=== PATIENT | female | born 1985 | race Caucasian/White ===

== ENCOUNTER 2017-11-30 12:46 | Observation (INO) | payer OTHER ==
[~2017-11-30] VITALS: Ht 167.6 cm; Wt 66.5 kg
[2017-11-30] MEDS ORDERED: SODIUM CHLORIDE 0.9% 1000ML 1,000 ML IV STA (13:47)
[2017-11-30 14:14] LABS: BASO % 0.8 %; BASO ABS # 0.05 K/uL (0-0.2); EOS % 5.4 %; EOS ABS # 0.35 K/uL (0-0.5); HEMATOCRIT 40.2 % (37-47); HEMOGLOBIN 13.4 g/dL (12.0-16.0); IG# 0.02 K/uL (0.00-0.02); LYMPH ABS # 1.55 K/uL (1.2-3.4); MEAN CELL VOLUME 89.9 fL (80-100); MEAN CORPUSCULAR HGB CONC 33.3 g/dl (32-36); MEAN PLATELET VOLUME 10.3 fL (7.4-10.4); MONO % 5.9 %; MONO ABS # 0.38 K/uL (0.11-0.59); NEUT % 63.6 %; PLATELET COUNT 263 K/uL (130-400); RED CELL DISTRIBUTION WIDTH CV 12.7 % (11.5-14.5); RED CELL DISTRIBUTION WIDTH SD 41.2 fL (36.4-46.3); WHITE BLOOD COUNT 6.45 K/uL (4.8-10.8)
[2017-11-30] MEDS ORDERED: NICOTINE 7 MG/24 HR TDSY TD STA (14:36)
[2017-11-30 14:37] LABS: ALBUMIN 4.4 gm/dl (3.4-5.0); CALCIUM 9.2 mg/dl (8.5-10.1); CREATININE 0.67 mg/dl (0.60-1.20); POTASSIUM 3.6 mmol/L (3.5-5.1)
[2017-11-30 14:40] LABS: TOTAL PROTEIN 8.6 gm/dl (6.4-8.2)
[2017-11-30] MEDS ORDERED: LAMO25TA PO (14:41)
[2017-11-30] MEDS ORDERED: OMEP20TA40 PO (14:41)
[2017-11-30] MEDS ORDERED: VENL75CA PO (14:41)
[2017-11-30] MEDS ORDERED: ONDANSETRON INJ 2 MG/ML 2 ML VIAL IV PRN (15:30)
[2017-11-30] MEDS ORDERED: POLYETHYLENE (MIRALAX) 17 GM PACK PO PRN (15:30)
[2017-11-30] MEDS ORDERED: ALUMINUM/MAGNESIUM/SIMETH (MAALOX MAX) 30 ML UDC PO PRN (15:30)
[2017-11-30] MEDS ORDERED: MAGNESIUM HYDROXIDE SUSP 30 ML UDC PO PRN (15:30)
[2017-11-30] MEDS ORDERED: NITROGLYCERIN 0.4 MG SL PER TAB CHARGE SL PRN (15:30)
--- NOTE | 2017-11-30 15:51 | History and Physical ---
History & Physical Date & Time of Service: Nov 30, 2017 at 15:36 Chief Complaint: Took All Pills Primary Care Physician: Gita Bajwa M.D. History of Present Illness Source: patient, clinic records, hospital records Patient is a 31 y/o female, with PMHx of depression, ?bipolar disorder, and GERD , who presented to the ED today due to overdosing on prescribed Lamictal and Effexor. She denies wanting to hurt herself. She states she has just been feeling very low lately and unable to sleep. She just wanted "to feel happy." She follows routinely w/ a psychiatrist on campus. She is diagnosed w/ depression and is believed to have bipolar but is not formally diagnosed. 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 She is from [place]. +insomnia. ED provider spoke w/ poison control who recommends 24 hour observation then she can be transferred to [facility]. Patient denies any fever, chills, sweats, lightheadedness, dizziness, vision changes, CP , palpitations, edema, SOB, wheezing, cough, abdominal pain, nausea, vomiting, diarrhea, urinary symptoms, melena, numbness/tingling, weakness, muscle/joint pain, anxiety, active bleeding, or new skin discoloration/changes. Past Medical/Surgical History Medical Problems: Depression ?bipolar disorder GERD (gastroesophageal reflux disease) PFS (patellofemoral syndrome) tobacco abuse Family History Patient reports no known family medical history. Social History Smoking Status: Current Every Day Smoker Smokeless Tobacco Use: No Alcohol Use: none Drug Use: none Marital Status: single Allergies Coded Allergies: Amoxicillin (Unverified Allergy, Unknown, RASH, 11/30/17) Home Medications Scheduled Lamotrigine (Lamictal), 25 MG PO QAM Omeprazole ([facility] Omeprazole), 40 MG PO DAILY Venlafaxine Hcl (Effexor Xr), 75 MG PO QAM Physical Exam Vital Signs Date Time Temp Pulse Resp B/P (MAP) Pulse Ox O2 Delivery O2 Flow Rate FiO2 11/30/17 14:29 63 16 114/72 99 Room Air 11/30/17 14:09 100 Room Air 11/30/17 12:59 36.7 79 18 121/69 100 Room Air General Appearance: WD/WN, no apparent distress Head: normocephalic, atraumatic Eyes: normal inspection, PERRL ENT: hearing grossly normal Neck: supple Respiratory/Chest: lungs clear, no respiratory distress, no accessory muscle use Cardiovascular: regular rate, rhythm Abdomen/GI: normal bowel sounds, non tender, soft Back: normal inspection Extremities/Musculoskelatal: no calf tenderness, no pedal edema Neurologic/Psych: alert, oriented x 3, + depressed affect Skin: normal color, warm/dry, no rash Diagnostics Laboratory Results Results Past 24 Hours Test 11/30/17 14:00 11/30/17 14:02 Range/Units White Blood Count 6.45 4.8-10.8 K/uL Red Blood Count 4.47 4.2-5.4 M/uL Hemoglobin 13.4 12.0-16.0 g/dL Hematocrit 40.2 37-47 % Mean Corpuscular Volume 89.9 80-100 fL Mean Corpuscular Hemoglobin 30.0 25-34 pg Mean Corpuscular Hemoglobin Concent 33.3 32-36 g/dl Platelet Count 263 130-400 K/uL Mean Platelet Volume 10.3 7.4-10.4 fL Neutrophils (%) (Auto) 63.6 % Lymphocytes (%) (Auto) 24.0 % Monocytes (%) (Auto) 5.9 % Eosinophils (%) (Auto) 5.4 % Basophils (%) (Auto) 0.8 % Neutrophils # (Auto) 4.10 1.4-6.5 K/uL Lymphocytes # (Auto) 1.55 1.2-3.4 K/uL Monocytes # (Auto) 0.38 0.11-0.59 K/uL Eosinophils # (Auto) 0.35 0-0.5 K/uL Basophils # (Auto) 0.05 0-0.2 K/uL RDW Standard Deviation 41.2 36.4-46.3 fL RDW Coefficient of Variation 12.7 11.5-14.5 % Immature Granulocyte % (Auto) 0.3 % Immature Granulocyte # (Auto) 0.02 0.00-0.02 K/uL Sodium Level 140 136-145 mmol/L Potassium Level 3.6 3.5-5.1 mmol/L Chloride Level 107 98-107 mmol/L Carbon Dioxide Level 27 21-32 mmol/L Anion Gap 6.0 3-11 mmol/L Blood Urea Nitrogen 15 7-18 mg/dl Creatinine 0.67 0.60-1.20 mg/dl Est Creatinine Clear Calc Drug Dose 104.7 ml/min Estimated GFR () 136.7 Estimated GFR (Non- 118.0 BUN/Creatinine Ratio 21.6 10-20 Random Glucose 88 70-99 mg/dl Calcium Level 9.2 8.5-10.1 mg/dl Total Bilirubin 0.4 0.2-1 mg/dl Direct Bilirubin 0.1 0-0.2 mg/dl Aspartate Amino Transf (AST/SGOT) 21 15-37 U/L Alanine Aminotransferase (ALT/SGPT) 30 12-78 U/L Alkaline Phosphatase 54 45-117 U/L Total Creatine Kinase 100 26-192 U/L Total Protein 8.6 6.4-8.2 gm/dl Albumin 4.4 3.4-5.0 gm/dl Lipase 313 73-393 U/L Salicylates Level < 1.7 2.8-20 mg/dl Acetaminophen Level < 2 10-30 ug/ml Ethyl Alcohol mg/dL < 3.0 0-3 mg/dl Urine Color YELLOW Urine Appearance CLEAR CLEAR Urine pH 6.5 4.5-7.5 Urine Specific [place] 1.011 1.000-1.030 Urine Protein NEG NEG Urine Glucose (UA) NEG NEG Urine Ketones NEG NEG Urine Occult Blood NEG NEG Urine Nitrite NEG NEG Urine Bilirubin NEG NEG Urine Urobilinogen NEG NEG Urine Leukocyte Esterase NEG NEG Urine Test NEG NEG Urine Opiates Screen NEG NEG Urine Methadone, Qualitative NEG NEG Urine Barbiturates NEG NEG Urine Phencyclidine (PCP) Level NEG NEG Ur Amphetamine/Methamphetamine NEG NEG MDMA (Ecstasy) Screen NEG NEG Urine Benzodiazepines Screen NEG NEG Urine Cocaine Metabolite NEG NEG Urine Marijuana (THC) NEG NEG EKG JOSE ANTONIO ROMANO ID:[id number] 30-NOV-2017 13:49:40 [facility] Sinus bradycardia Rightward axis Voltage criteria for left ventricular hypertrophy Abnormal ECG No previous ECGs available 25mm/s 10mm/mV 150Hz 8.0 SP2 12SL 241 CLAIRE: 13 Referred by: Referred Self Unconfirmed Vent. rate 58 BPM TN interval 174 ms QRS duration 94 ms QT/QTc 426/418 ms P-R-T axes 67 94 9 1985 (31 yr) Female Room: Loc:15 Entry Level Drafter:SHANE GARCIA Test ind: Impression Assessment and Plan Patient is a 31 y/o female, with PMHx of depression, ?bipolar disorder, and GERD , who presented to the ED today due to overdosing on prescribed Lamictal and Effexor. Intentional overdose on Effexor and Lamictal, depression and ?bipolar disorder: - Admit to tele for cardiac monitoring - O2 protocol - EGK QAM and PRN for chest pain - IVF @ 125 ml/hr - Hold Lamictal and Effexor for now - Suicidal observation - Check b12, vitamin D, TSH - Consult psychiatry, appreciate recommendations Tobacco abuse: - Smoking cessation counselling - Nicotine patch GERD: Protonix daily DVT prophylaxis: Heparin SQ BID Code status: LEVEL I, FULL Dispo: [employer] student- 24 hour observation then likely transfer to [facility] Level of Care Telemetry Resuscitation Status FULL RESUSCITATION VTE Prophylaxis VTE Risk Assessment Done? Y/N: Yes Risk Level: Low Given or contraindicated: Enoxaparin (Lovenox)SQ, T.E.D. Stockings, SCD's Note Attending Admission Note & Attestation: Pt seen/examined, chart reviewed, care plan d/w JUSTIN Kelly. I agree w/ the myers components of her admission documentation. 31yo female with recently diagnosed bipolar disorder type 2 who presents after apparent suicide attempt by way of ingestion (medications). PMH, PSH, allergies, meds, sochx, famhx, ros - reviewed denies any palpitations, sweats, tremors, chest pain VSS no fever gen - flat affect, NAD heart - RRR, s1, s2 lungs - CTA b/l abd - soft, NT ext - no edema psych - denies suicidal ideation; flat affect A/P: bipolar d/o type 2 with depression apparent suicide attempt by way of ingestion with lamictal/effexor telemetry, EKG in am no signs/symptoms of serotonin excess at this time psych consult 1:1 observation/suicide precautions Jane Rodriguez MD
[2017-11-30 16:45] VITALS: BP 127/80; PULSE 60; TEMP 37.2; O2SAT 99; Ht 167.6 cm; Wt 66.5 kg
[2017-11-30] MEDS: SODIUM CHLORIDE 0.9% 1000ML 1,000 ML IV SCH (16:54)
[2017-11-30 19:38] VITALS: BP 116/76; PULSE 67; TEMP 36.6; O2SAT 99
[2017-11-30] MEDS: HEPARIN SOD 5000 UNIT/0.5 ML CARP SQ SCH (19:53)
[2017-11-30 20:00] VITALS: O2SAT 96
--- NOTE | 2017-11-30 20:11 | EMERGENCY ROOM VISIT NOTE ---
History Report prepared by Shalini: Ole Savage Under the Supervision of: Dr. Anup Meraz M.D. First contact with patient: 13:25 Chief Complaint: OVERDOSE (INTENTIONAL) Stated Complaint: TOOK ALL PILLS History of Present Illness The patient is a 31 year old female who presents to the Emergency Room with an intentional drug overdose that occurred prior to arrival. Per the patient and her friend, she took about 450 mg of Effexor XR and about 200 mg of Lamictal. She states that she does not entirely know why she did this, but just wanted to feel happy. She denies any suicidal ideation. She currently feels tired. She has been having mood swings that have worsened recently. 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 She has also been having insomnia for the past year. She tried Trazodone without any relief, so she stopped taking it. She now takes Melatonin instead. She has a past history of self harm through cutting herself. She claims that she did it for self-harm purposes and not suicidal purposes. The last time was about 6 months ago. However, she has felt suicidal in the past but has never made any attempts to take her own life. She does follow up with a therapist regularly. She denies any alcohol or drug use. She denies taking any other excess of substances today. She has a past medical history of GERD, eczema , and PFS. She notes that she has been having some upper back pains. Her energy levels and concentration has been low, but her appetite has been normal. Pt denies LOC, headache, fevers, chills, diaphoresis, visual changes, neck pain, chest pain, breathing difficulties, nausea, vomiting, abdominal pain, melena, hematochezia, urinary symptoms, numbness, weakness, lymphadenopathy, rash, or other complaints. Source of History: patient Onset: [employer] Position: other (Global) Symptom Intensity: moderate Quality: other (Intentional OD) Timing: constant Associated Symptoms: + back pain Note: She has had low energy levels and has been having trouble concentrating. Review of Systems See HPI for pertinent positives and negatives. A total of ten systems were reviewed and were otherwise negative. Past Medical & Surgical Medical Problems: (1) GERD (gastroesophageal reflux disease) (2) Overdose (3) PFS (patellofemoral syndrome) Family History Patient reports no known family medical history. Social History Smoking Status: Current Every Day Smoker Smokeless Tobacco Use: No Drug Use: none Occupation Status: student Current/Historical Medications Scheduled Lamotrigine (Lamictal), 25 MG PO QAM Omeprazole ([facility] Omeprazole), 40 MG PO DAILY Venlafaxine Hcl (Effexor Xr), 75 MG PO QAM Allergies Coded Allergies: Amoxicillin (Unverified Allergy, Unknown, RASH, 11/30/17) Physical Exam Vital Signs Date Time Temp Pulse Resp B/P (MAP) Pulse Ox O2 Delivery O2 Flow Rate FiO2 11/30/17 16:45 37.2 60 18 127/80 99 Room Air 11/30/17 16:22 68 15 98/65 96 11/30/17 16:00 68 15 98/65 96 11/30/17 15:30 63 14 98/67 98 11/30/17 15:00 64 13 113/81 99 11/30/17 14:29 63 16 114/72 99 Room Air 11/30/17 14:09 100 Room Air 11/30/17 12:59 36.7 79 18 121/69 100 Room Air Physical Exam GENERAL: Awake, alert, well appearing, no distress HENT: Normocephalic, atraumatic. TM's normal. Oropharynx unremarkable. EYES: PERRL. EOMI. Normal conjunctiva. Sclera non-icteric. NECK: Supple. No nuchal rigidity. FROM. No JVD or bruit. RESPIRATORY: CTA CARDIAC: RRR. No murmur. ABDOMEN: Soft, non distended. No tenderness to palpation. No rebound or guarding. No masses. MUSCULOSKELETAL: Unremarkable. No edema. No discoloration. Gross motor strength symmetric. NEURO: Cranial nerves 2-12 grossly intact. Normal sensorium. No sensory or motor deficits noted. Speech normal. No pronator drift. SKIN: No rash or jaundice noted. LYMPH: No adenopathy. PSYCH: Depressed mood. Flat affect. Vague suicidal ideation. No plan. No homicidal ideation. Medical Decision & Procedures Laboratory Results 11/30/17 14:00 Red Blood Count 4.47, Mean Corpuscular Volume 89.9, Mean Corpuscular Hemoglobin 30.0, Mean Corpuscular Hemoglobin Concent 33.3, Mean Platelet Volume 10.3, Neutrophils (%) (Auto) 63.6, Lymphocytes (%) (Auto) 24.0, Monocytes (%) (Auto) 5.9, Eosinophils (%) (Auto) 5.4, Basophils (%) (Auto) 0.8, Neutrophils # (Auto) 4.10, Lymphocytes # (Auto) 1.55, Monocytes # (Auto) 0.38, Eosinophils # (Auto) 0.35, Basophils # (Auto) 0.05 11/30/17 14:00 Test 11/30/17 14:00 11/30/17 14:02 11/30/17 16:00 White Blood Count 6.45 K/uL (4.8-10.8) Red Blood Count 4.47 M/uL (4.2-5.4) Hemoglobin 13.4 g/dL (12.0-16.0) Hematocrit 40.2 % (37-47) Mean Corpuscular Volume 89.9 fL (80-100) Mean Corpuscular Hemoglobin 30.0 pg (25-34) Mean Corpuscular Hemoglobin Concent 33.3 g/dl (32-36) Platelet Count 263 K/uL (130-400) Mean Platelet Volume 10.3 fL (7.4-10.4) Neutrophils (%) (Auto) 63.6 % Lymphocytes (%) (Auto) 24.0 % Monocytes (%) (Auto) 5.9 % Eosinophils (%) (Auto) 5.4 % Basophils (%) (Auto) 0.8 % Neutrophils # (Auto) 4.10 K/uL (1.4-6.5) Lymphocytes # (Auto) 1.55 K/uL (1.2-3.4) Monocytes # (Auto) 0.38 K/uL (0.11-0.59) Eosinophils # (Auto) 0.35 K/uL (0-0.5) Basophils # (Auto) 0.05 K/uL (0-0.2) RDW Standard Deviation 41.2 fL (36.4-46.3) RDW Coefficient of Variation 12.7 % (11.5-14.5) Immature Granulocyte % (Auto) 0.3 % Immature Granulocyte # (Auto) 0.02 K/uL (0.00-0.02) Anion Gap 6.0 mmol/L (3-11) Est Creatinine Clear Calc Drug Dose 104.7 ml/min Estimated GFR () 136.7 Estimated GFR (Non- 118.0 BUN/Creatinine Ratio 21.6 (10-20) Calcium Level 9.2 mg/dl (8.5-10.1) Total Bilirubin 0.4 mg/dl (0.2-1) Direct Bilirubin 0.1 mg/dl (0-0.2) Aspartate Amino Transf (AST/SGOT) 21 U/L (15-37) Alanine Aminotransferase (ALT/SGPT) 30 U/L (12-78) Alkaline Phosphatase 54 U/L (45-117) Total Creatine Kinase 100 U/L (26-192) Total Protein 8.6 gm/dl (6.4-8.2) Albumin 4.4 gm/dl (3.4-5.0) Lipase 313 U/L (73-393) Thyroid Stimulating Hormone (TSH) 1.820 uIu/ml (0.300-4.500) Salicylates Level < 1.7 mg/dl (2.8-20) Acetaminophen Level < 2 ug/ml (10-30) Ethyl Alcohol mg/dL < 3.0 mg/dl (0-3) Urine Color YELLOW Urine Appearance CLEAR (CLEAR) Urine pH 6.5 (4.5-7.5) Urine Specific [place] 1.011 (1.000-1.030) Urine Protein NEG (NEG) Urine Glucose (UA) NEG (NEG) Urine Ketones NEG (NEG) Urine Occult Blood NEG (NEG) Urine Nitrite NEG (NEG) Urine Bilirubin NEG (NEG) Urine Urobilinogen NEG (NEG) Urine Leukocyte Esterase NEG (NEG) Urine Test NEG (NEG) Urine Opiates Screen NEG (NEG) Urine Methadone, Qualitative NEG (NEG) Urine Barbiturates NEG (NEG) Urine Phencyclidine (PCP) Level NEG (NEG) Ur Amphetamine/Methamphetamine NEG (NEG) MDMA (Ecstasy) Screen NEG (NEG) Urine Benzodiazepines Screen NEG (NEG) Urine Cocaine Metabolite NEG (NEG) Urine Marijuana (THC) NEG (NEG) Prothrombin Time 10.5 SECONDS (9.0-12.0) Prothromb Time International Ratio 1.0 (0.9-1.1) Activated Partial Thromboplast Time 26.0 SECONDS (21.0-31.0) Partial Thromboplastin Ratio 1.0 Laboratory results reviewed by me Medications Administered Medications (Trade) Dose Ordered Sig/Jessenia Route Start Time Stop Time Status Last Admin Dose Admin Sodium Chloride 1,000 ml @ 200 mls/hr Q5H STAT IV 11/30/17 13:47 11/30/17 16:57 DC 11/30/17 13:47 200 MLS/HR Nicotine (Nicoderm Cq 7 Mg Patch) 1 patch NOW STAT TD 11/30/17 14:36 11/30/17 14:37 DC 11/30/17 15:30 1 PATCH Sodium Chloride 1,000 ml @ 125 mls/hr Q8H IV 11/30/17 15:30 12/30/17 15:29 11/30/17 16:54 125 MLS/HR ECG Indication: toxicologic Rate (beats per minute): 58 Rhythm: sinus bradycardia Findings: no ectopy, other (right axis, LVH, QTC 418 ms, QRS 94 ms) Change: Patient's electrocardiogram was interpreted by me. ED Course 1325: The patient was evaluated in room A7. A complete history and physical exam was performed. 1346: I discussed the patient's case with Poison Control at this time. They recommended that the patient receive an 18 hour observation because of the amount of Effexor XR in her system. 1347: Ordered Sodium Chloride 1000 ml @ 200 mls/hr IV 1436: Ordered Nicotine 1 patch TD 1442: Upon reexamination, the patient was resting. I discussed the test results and treatment plan with her. I discussed the patient's case with Dr. Rodriguez of [facility]. The patient will be evaluated for further management. Medical Decision Triage Nursing notes reviewed and agree them. Additional history obtained from the significant other. The patient's history was concerning for possible psychiatric disturbance. Differential diagnosis: Etiologies such as mood disorder, infection, hypoglycemia, electrolyte abnormalities, cardiac sources, intracerebral event, toxicologic, neurologic, as well as others were entertained. Physical examination: The physical examination was performed as above and was benign. No emergent medical pathologies were noted. ER treatment provided: IV hydration with normal saline Cardiac monitoring On reassessment the patient felt better. Diagnostic interpretation by me: The electrocardiogram was negative for pathologic change. The labs revealed CBC and chemistry panel. Toxicology screens negative. Imaging studies: Deferred Consultation: Consultation was made with poison control who recommended prolonged observation secondary to the Effexor XR. A consultation was made with internal medicine. The case was discussed. The patient will be admitted medically for observation and psychiatric consultation. Medication Reconcilliation Current Medication List: was personally reviewed by me Blood Pressure Screening Patient's blood pressure: Normal blood pressure Blood pressure disposition: Did not require urgent referral Consults Time Called: 1438 Consulting Physician: Dr. Michael THOMAS Returned Call: [phone] Discussed the patient's case. The patient will be evaluated for further treatment and disposition. Impression Primary Impression: Intentional drug overdose Scribe Attestation The scribe's documentation has been prepared under my direction and personally reviewed by me in its entirety. I confirm that the note above accurately reflects all work, treatment, procedures, and medical decision making performed by me. Departure Information Dispostion Being Evaluated By Hospitalist Referrals Hosea Morrison M.D. (PCP) Patient Instructions My [facility] Problem Qualifiers Primary Impression: Intentional drug overdose Encounter type: initial encounter Qualified Codes: T50.902A - Poisoning by unspecified drugs, medicaments and biological substances, intentional self-harm , initial encounter
[2017-11-30] MEDS ORDERED: ENOXAPARIN 40 MG/0.4 ML SYR SC SCH (21:00)
[2017-11-30 23:10] VITALS: BP 120/76; PULSE 55; TEMP 36.3; O2SAT 96
[2017-12-01] VITALS: O2SAT 96
[2017-12-01 04:00] VITALS: BP 116/76; PULSE 60; TEMP 36.7; O2SAT 96; O2SAT 98
[2017-12-01 08:01] VITALS: BP 111/70; PULSE 63; TEMP 36.9; O2SAT 100
[2017-12-01] MEDS: HEPARIN SOD 5000 UNIT/0.5 ML CARP SQ SCH ×2 (08:32→20:48)
[2017-12-01] MEDS ORDERED: NICOTINE 14 MG/24 HR TDSY TD SCH (09:00)
[2017-12-01] MEDS ORDERED: CHOLECALCIFEROL 1000 INTER.UNIT TAB PO SCH (09:00)
[2017-12-01] MEDS ORDERED: PANTOprazole SOD 40 MG TAB PO SCH (09:00)
[2017-12-01] MEDS: SODIUM CHLORIDE 0.9% 1000ML 1,000 ML IV SCH ×2 (09:06→09:09)
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
[2017-12-01 12:13] VITALS: BP 120/84; PULSE 70; TEMP 37; O2SAT 96
--- NOTE | 2017-12-01 16:01 | Psych Management Progress Note ---
Psychiatry Miscellaneous Date of Service: Dec 01, 2017. Reviewed case with PA, and with psychiatric liaison nurse, as patient asking to leave. 302 petition and warrant completed, awaiting medical clearance by primary attending. Recommendations are for inpatient mental health hospitalization on a 302 commitment due to multiple risk factors as outlined in PAs note. Once medically cleared, [facility] can be contacted to perform bed search.
[2017-12-01] MEDS ORDERED: NURSING VERBAL MED ORDER ONE ×2 (18:45→19:45)
--- NOTE | 2017-12-01 19:09 | Progress Note ---
Subjective Date of Service: Dec 01, 2017. Subjective Pt evaluation today including: conversation w/ patient, conversation w/ family , physical exam, chart review, lab review, review of studies, conversation w/ it security consultant, review of inpatient medication list Pain: none PO Intake: good Voiding: no voiding problems, no incontinence Pt reports ingesting 8 - 25mg Lamictal and 6 - 75mg Effexor XR, which she reports is "all that was left in the bottles". Pt states she had been "weird" with worsening of mood and mood swings. She states she had the urge to take the medications and tried to attempt suicide. Pt is emotionally liable, in tears , suddenly start to cry.Pt denies cp, sob, dizziness, palpitation and loss of consciousness. Pt denies nausea, vomiting and diarrhea. Pt denies blurry vision and headache. Poison control sign off. Pt has no abnormal rate and rhythm on tele monitor. Problem List Medical Problems: (1) Intentional drug overdose Status: Acute Review of Systems Psychiatric: + depression symptoms, + anxiety, + substance abuse All Other Systems: Reviewed and Negative Objective Vital Signs Date Time Temp Pulse Resp B/P (MAP) Pulse Ox O2 Delivery O2 Flow Rate FiO2 12/01/17 16:00 Room Air 12/01/17 12:13 37.0 70 16 120/84 (96) 96 Room Air 12/01/17 12:00 Room Air 12/01/17 08:01 36.9 63 16 111/70 (84) 100 Room Air 12/01/17 08:00 Room Air 12/01/17 04:00 36.7 60 20 116/76 (89) 98 Room Air 12/01/17 04:00 96 Room Air 12/01/17 00:00 96 Room Air 11/30/17 23:10 36.3 55 18 120/76 (91) 96 Room Air 11/30/17 20:00 96 Room Air 11/30/17 19:38 36.6 67 18 116/76 (89) 99 Room Air Physical Exam General Appearance: no apparent distress Respiratory/Chest: lungs clear, normal breath sounds, no respiratory distress, no accessory muscle use Cardiovascular: regular rate, rhythm, no edema, no gallop, no JVD Extremities: normal range of motion, normal inspection, no pedal edema, no calf tenderness Neurologic/Psychiatric: alert, oriented x 3, + depressed affect Skin: warm/dry, no rash Lymphatic: no adenopathy Assessment and Plan Intentional drug overdose bipolar d/o type 2 with depression -- medically clear to go and treated for mental health as per psychiatry. CBC and BMP all other labs are normal, clinical exam except behavioral is normal. As per Psychic recommendation: Would recommend continuing to hold Lamictal and Effexor until patient is cleared for mental health referrals. At this time, it is our recommendation that the patient be hospitalized for inpatient mental health treatment as she is s/p impulsive overdose, reports "constant" suicidal thoughts, and has reported worsening in mood fluctuations. Pt was unable to state willingness for hospitalization and would therefore have our recommendation to pursue a 302 commitment if she remains opposed to these recommendations. Pt is deemed to be a risk of harm to self due to recent overdose, ongoing SI, worsening of mood, and inability to adequately describe the context in which her overdose occurred. Awaiting medical clearance following observation for overdose, and will then be able to evaluate our availability [facility] versus referral to outside mental health facility. Will plan to assist with that process once medically cleared. - Appreciate the opportunity to be involved in the care of this patient. Dr. Thompson has personally been involved in the review of the above case and development of recommendations. I will sign the 302 based on psychic evaluation. Continued [facility] stay due to: home environment unsafe for pt Discharge planning: other ([facility])
[2017-12-01] MEDS ORDERED: NICOTINE POLACRILEX 2 MG GUM MT PRN (19:45)
[2017-12-01] MEDS ORDERED: IBUPROFEN 200 MG TAB PO PRN (19:45)
[2017-12-01 20:29] VITALS: BP 113/74; PULSE 68; TEMP 36.7; O2SAT 98
[2017-12-02 00:27] VITALS: BP 117/77; PULSE 59; TEMP 36.5; O2SAT 98
--- NOTE | 2017-12-02 00:55 | Discharge Instructions ---
Discharge Instructions Date of Service Dec 02, 2017. Admission Reason for Admission: Overdose Discharge Discharge Diagnosis / Problem: Overdose Discharge Goals Goal(s): Therapeutic intervention Activity Recommendations Activity Level: Up Ad Cait . Additional Information Patient informed of condition: Yes Advance Directives: No DNR: No Level of Care: Acute Rehab Communicable Disease: No Prognosis: Stable Instructions / Follow-Up Instructions / Follow-Up - Continue to hold Lamictal and Effexor at this time due to attempted overdose - Continue home Protonix Current Hospital Diet Patient's current hospital diet: AHA Diet (Heart Healthy), Vegetarian Diet Discharge Diet Recommended Diet: Regular Diet Pending Studies Studies pending at discharge: no Medical Emergencies . Who to Call and When: Medical Emergencies: If at any time you feel your situation is an emergency, please call 911 immediately. . Non-Emergent Contact Non-Emergency issues call your: Primary Care Provider . . "Provider Documentation" section prepared by Michael Carmona. . Core Measure Problem Core Measures: None
[2017-12-02 01:20] VITALS: BP 106/67; PULSE 99; TEMP 36.8; O2SAT 96
--- NOTE | 2017-12-03 20:33 | Discharge Summary ---
Discharge Summary Date of Service Dec 01, 2017. Discharge Summary Intentional drug overdose bipolar d/o type 2 with depression -- medically clear to go and treated for mental health as per psychiatry. CBC and BMP all other labs are normal, clinical exam except behavioral is normal. As per Psychic recommendation: Would recommend continuing to hold Lamictal and Effexor until patient is cleared for mental health referrals. At this time, it is our recommendation that the patient be hospitalized for inpatient mental health treatment as she is s/p impulsive overdose, reports "constant" suicidal thoughts, and has reported worsening in mood fluctuations. Pt was unable to state willingness for hospitalization and would therefore have our recommendation to pursue a 302 commitment if she remains opposed to these recommendations. Pt is deemed to be a risk of harm to self due to recent overdose, ongoing SI, worsening of mood, and inability to adequately describe the context in which her overdose occurred. Awaiting medical clearance following observation for overdose, and will then be able to evaluate our availability on [address] [place] [id number] versus referral to outside mental health facility. Will plan to assist with that process once medically cleared. - Appreciate the opportunity to be involved in the care of this patient. Dr. Thompson has personally been involved in the review of the above case and development of recommendations. I will sign the 302 based on psychic evaluation.
== END 2017-12-02 01:36 ==
LOC: C.EDB 12:48 → ENRESERV 16:12 → C.2T 16:45
PROVIDERS: ADMIT Internal Medicine; ATTEND Internal Medicine
DX: T43.212A Poisoning by selective serotonin and norepinephrine reuptake inhibitors, intentional self-harm, initial encounter (principal); T36.7X Poisoning by, adverse effect of and underdosing of antifungal antibiotics, systemically used; F31.81 Bipolar II disorder; Z91.5 Personal history of self-harm; K21.9 Gastro-esophageal reflux disease without esophagitis; F17.200 Nicotine dependence, unspecified, uncomplicated; F32.9 Major depressive disorder, single episode, unspecified

== ENCOUNTER → 2018-02-20 | Outpatient (CLI) | payer OTHER ==
[~2018-02-20] MED LIST: LAMO25TA PO; OMEP20TA40 PO; VENL75CA PO
--- NOTE | 2018-02-20 17:01 | ECHOCARDIOGRAM REPORT ---
*NOTICE TO RECEIVING CONSTITUTION PARTY AGENCY This information is strictly Confidential and protected under [place] law. [place] law prohibits you from making any further disclosure of this information unless further disclosure is expressly permitted by the written consent of the person to whom it pertains or is authorized by law. A general authorization for the release of medical or other information is not sufficient for this purpose. Hospital accepts no responsibility if the information is made available to any other person, INCLUDING THE PATIENT. Interpretation Summary * Name: JOSE ANTONIO ROMANO Study Date: 02/20/2018 03:20 PM BP: 117/77 mmHg * Patient Location: [facility] HR: 69 * : 1985 (M/d/yyyy) Gender: Female Height: 68 in * Age: 32 yrs Ethnicity: CA Weight: 140 lb * Ordering Physician: Gita Bajwa * Referring Physician: Gita Bajwa * Performed By: Rita Lind R[facility] * * Reason For Study: DIZZINESS / ABN EKG * BSA: 1.8 m2 * -- Conclusions -- * Left ventricular systolic function is normal. * A patent foramen ovale is present. * Right ventricular systolic pressure is normal. Procedure Details * A complete two-dimensional transthoracic echocardiogram was performed (2D, M-mode, Doppler and color flow Doppler). * A saline contrast injection was performed to assess for cardiac shunting. * The injection was performed through an intravenous line in the right arm. * The attending nurse who injected the saline contrast was DASIA Espinoza, RN. * A total of 20 cc of agitated saline was given. Left Ventricle * The left ventricle is normal in size. * There is normal left ventricular wall thickness. * Left ventricular systolic function is normal. * Normal diastolic function * Ejection Fraction = 55-60%. * The left ventricular wall motion is normal. Right Ventricle * The right ventricle is normal in size and function. Atria * The left atrial size is normal. * Right atrial size is normal. * The intra-atrial septum appears aneurysmal * A patent foramen ovale is present. * Injection of contrast documented an interatrial shunt. Mitral Valve * The mitral valve is normal. * There is trace mitral regurgitation. Tricuspid Valve * The tricuspid valve is not well visualized, but is grossly normal. * There is trace tricuspid regurgitation. * Right ventricular systolic pressure is normal. Aortic Valve * The aortic valve is normal in structure and function. * The aortic valve is trileaflet. * No hemodynamically significant valvular aortic stenosis. * There is no significant aortic regurgitation. Pulmonic Valve * The pulmonic valve is not well seen, but is grossly normal. * Trace pulmonic valvular regurgitation. Pericardium/Pleural * There is no pericardial effusion. Great Vessels * Normal inferior vena cava diameter and respiratory variation suggests normal central venous pressure. MMode 2D Measurements and Calculations IVSd 1.1 cm IVSs 1.3 cm LVIDd 4.7 cm LVIDs 3.3 cm LVPWd 1.2 cm LVPWs 1.6 cm IVS/LVPW 0.93 FS 30.1 % EDV(Teich) 103.5 ml ESV(Teich) 44.2 ml EF(Teich) 57.3 % EDV(cubed) 105.3 ml ESV(cubed) 36.0 ml EF(cubed) 65.8 % % IVS thick 20.0 % % LVPW thick 35.0 % LV mass(C)d 191.2 grams LV mass(C)dI 108.8 grams/m\S\2 LV mass(C)s 162.9 grams LV mass(C)sI 92.8 grams/m\S\2 SV(Teich) 59.3 ml SI(Teich) 33.8 ml/m\S\2 SV(cubed) 69.3 ml SI(cubed) 39.5 ml/m\S\2 LA dimension 2.9 cm LVOT diam 2.1 cm LVOT area 3.4 cm\S\2 LVAd ap4 25.9 cm\S\2 LVLd ap4 7.1 cm EDV(MOD-sp4) 78.9 ml EDV(sp4-el) 80.5 ml LVAs ap4 16.7 cm\S\2 LVLs ap4 5.9 cm ESV(MOD-sp4) 38.6 ml ESV(sp4-el) 40.1 ml EF(MOD-sp4) 51.1 % EF(sp4-el) 50.2 % LVAd ap2 30.6 cm\S\2 LVLd ap2 7.3 cm EDV(MOD-sp2) 105.5 ml EDV(sp2-el) 108.9 ml LVAs ap2 16.1 cm\S\2 LVLs ap2 5.4 cm ESV(MOD-sp2) 39.5 ml ESV(sp2-el) 40.4 ml EF(MOD-sp2) 62.5 % EF(sp2-el) 62.9 % LVLd %diff 3.4 % EDV(MOD-bp) 93.1 ml LVLs %diff -8.68 % ESV(MOD-bp) 41.0 ml EF(MOD-bp) 56.0 % SV(MOD-sp4) 40.4 ml SI(MOD-sp4) 23.0 ml/m\S\2 SV(MOD-sp2) 66.0 ml SI(MOD-sp2) 37.6 ml/m\S\2 SV(MOD-bp) 52.2 ml SI(MOD-bp) 29.7 ml/m\S\2 SV(sp4-el) 40.4 ml SI(sp4-el) 23.0 ml/m\S\2 SV(sp2-el) 68.5 ml SI(sp2-el) 39.0 ml/m\S\2 Doppler Measurements and Calculations MV E max maria g 73.9 cm/sec MV A max maria g 55.0 cm/sec MV E/A 1.3 MV P1/2t max maria g 80.2 cm/sec MV P1/2t 64.4 msec MVA(P1/2t) 3.4 cm\S\2 MV dec slope 364.8 cm/sec\S\2 MV dec time 0.19 sec Ao V2 max 106.1 cm/sec Ao max PG 4.5 mmHg Ao max PG (full) 2.2 mmHg HERMINIA(V,A) 2.5 cm\S\2 HERMINIA(V,D) 2.5 cm\S\2 LV V1 max PG 2.3 mmHg LV V1 max 76.6 cm/sec PA V2 max 85.4 cm/sec PA max PG 2.9 mmHg TR max maria g 198.9 cm/sec
== END | disposition home or self-care (01) ==
LOC: C.CPL 15:03
PROVIDERS: ATTEND Family Medicine
DX: R94.31 Abnormal electrocardiogram [ECG] [EKG] (principal)